=== PATIENT | female | born 1955 | race Two or more races ===

== ENCOUNTER 2021-01-18 09:40 | Inpatient (IN) | payer MEDICARE, MEDICAID ==
[2021-01-18] VITALS (13 sets, daily range): BP systolic 77–134; BP diastolic 39–96
[~2021-01-18] VITALS: Ht 154.9 cm; Wt 107.2 kg
[2021-01-18] MEDS ORDERED: NOREPINEPHRINE 8 MG/250ML KIT 250 ML IV ONE (10:11)
[2021-01-18] MEDS ORDERED: ONDANSETRON HCL 4 MG/2 ML VIAL IV ONE (10:15)
[2021-01-18] MEDS ORDERED: SODIUM CHLORIDE 0.9% 1,000 ML IV ONE (10:15)
[2021-01-18] MEDS ORDERED: IOHEXOL 350 MG/ML 100ML IJ ONE (10:24)
[2021-01-18] MEDS ORDERED: DEXTROSE 50% SYRINGE 50 ML IV ONE (10:31)
[2021-01-18] MEDS ORDERED: ETOMIDATE (2MG/ML) 20ML VIAL IV ONE ×2 (10:33→11:15)
[2021-01-18] MEDS ORDERED: ROCURONIUM 10MG/ML 10ML VIAL IV ONE ×2 (10:33→11:15)
[2021-01-18] MEDS ORDERED: MIDAZOLAM DRIP 50 mg/50mL 50 ML IV ONE (10:37)
[2021-01-18] MEDS ORDERED: NOREPINEPHRINE 8 MG/250ML KIT 250 ML IV SCH (10:45)
[2021-01-18] MEDS ORDERED: EPINEPHrine HCL 250 ML IV SCH (10:45)
[2021-01-18 10:47] LABS: Basophils # (auto) 0 10 ^3/uL (0-0.2); Basophils % (auto) 0.2 % (0.0-2.0); Eosinophils # (auto) 0 10 ^3/uL (0-0.8); Eosinophils % (auto) 0.2 % (0.0-7.0); Hematocrit 21.7 % (36.0-46.0); Lymphocytes % (auto) 18.3 % (10.0-50.0); Mean Corpuscular Hemoglobin 22.7 pg (28.0-32.0); Mean Corpuscular Hgb Conc. 30.2 g/dL (32.0-36.0); Mean Corpuscular Volume 75.3 fL (80.0-100.0); Monocytes # (auto) 0.2 10 ^3/uL (0-1.3); Monocytes % (auto) 4.4 % (0.0-12.0); Neutrophils # (auto) 4.3 10 ^3/uL (1.6-8.6); Neutrophils % (auto) 76.9 % (37.0-80.0); Nucleated Red Blood Cells % 2.4 %; Red Blood Cells 2.88 10^6/uL (4.0-5.20); Red Cell Distribution Width 19.8 % (11.8-14.3); White Blood Cell 5.5 10^3/uL (4.4-10.8)
[2021-01-18 10:52] LABS: Hemoglobin 6.5 g/dL (12.2-16.2)
[2021-01-18 10:57] LABS: Urine Bacteria FEW /hpf (None Seen); Urine Blood Negative /uL (Negative); Urine Hyaline Cast MANY /lpf (0 - 2); Urine Mucus FEW (None Seen); Urine Specific Gravity 1.016 (1.001-1.035); Urine WBC 2 /hpf (0 - 5)
[2021-01-18] MEDS ORDERED: fentaNYL Drip 2500mCg/250mlNS 250 ML IV SCH (11:00)
[2021-01-18] MEDS: MIDAZOLAM DRIP 50 mg/50mL 50 ML IV SCH ×3 (11:12→17:29)
[2021-01-18 11:16] LABS: Albumin 1.2 g/dL (3.4-5.0); Calcium 7.3 mg/dL (8.5-10.1); Potassium 4.1 mmol/L (3.5-5.1)
[2021-01-18 11:22] LABS: BUN/Creatinine Ratio 21.4; Bilirubin, Total 0.3 mg/dL (0.2-1.0); Total Protein 4.5 g/dL (6.4-8.2)
[2021-01-18] MEDS: PHENYLEPHRINE IV 250 ML IV SCH ×2 (12:04→14:06)
[2021-01-18] MEDS: VASOPRESSIN 50 UNITS in D5W 5% 247.5 ML IV SCH ×3 (12:53→18:58)
[2021-01-18 13:53] LABS: Lactic Acid w/Reflex 6.6 mmol/L (0.4-2.0)
[2021-01-18 14:44] LABS: INR 1.29 (0.9-1.15)
[2021-01-18] MEDS ORDERED: PIPERACILLIN-TAZOB 3.375GM 100 ML IV ONE (14:45)
[2021-01-18 15:09] LABS: Basophils # (auto) 0 10 ^3/uL (0-0.2); Eosinophils # (auto) 0 10 ^3/uL (0-0.8); Eosinophils % (auto) 0.2 % (0.0-7.0); Lymphocytes # (auto) 1.5 10 ^3/uL (0.4-5.4); Monocytes # (auto) 0.3 10 ^3/uL (0-1.3)
[2021-01-18 15:11] LABS: Basophils % (auto) 0.2 % (0.0-2.0); Hematocrit 34.9 % (36.0-46.0); Hemoglobin 10.6 g/dL (12.2-16.2); Lymphocytes % (auto) 20.9 % (10.0-50.0); Mean Corpuscular Hemoglobin 24.6 pg (28.0-32.0); Mean Corpuscular Hgb Conc. 30.5 g/dL (32.0-36.0); Mean Corpuscular Volume 80.6 fL (80.0-100.0); Monocytes % (auto) 4.6 % (0.0-12.0); Neutrophils # (auto) 5.2 10 ^3/uL (1.6-8.6); Neutrophils % (auto) 74.1 % (37.0-80.0); Red Blood Cells 4.33 10^6/uL (4.0-5.20); White Blood Cell 7.1 10^3/uL (4.4-10.8)
[2021-01-18] MEDS ORDERED: MORPHINE SULFATE INJECTION 2 MG/ML SYRG IV PRN ×3 (15:15→17:15)
[2021-01-18] MEDS ORDERED: NITROGLYCERIN 0.4 MG SL TAB SL PRN ×2 (15:15→17:15)
[2021-01-18 15:20] LABS: Red Cell Distribution Width 21.2 % (11.8-14.3)
[2021-01-18] MEDS: D5W 5% 1,000 ML IV SCH (15:45)
[2021-01-18] MEDS ORDERED: ONDANSETRON HCL 4 MG/2 ML VIAL IV PRN (17:15)
[2021-01-18] MEDS ORDERED: LORazepam 0.5 MG TAB PO PRN (17:15)
[2021-01-18] MEDS ORDERED: FAMOTIDINE (10MG/ML) 2ML VL IV ONE (17:15)
[2021-01-18] MEDS ORDERED: DOCUSATE SOD 100 MG CAP PO PRN (17:15)
[2021-01-18] MEDS ORDERED: MORPHINE SULFATE 4 MG/ML SYR/VIAL IV PRN (17:15)
[2021-01-18] MEDS ORDERED: ACETAMINOPHEN 325 MG TAB PO PRN (17:15)
[2021-01-18] MEDS ORDERED: VANCOMYCIN PER PHARMACY 1,000 MG IV SCH (17:15)
[2021-01-18] MEDS ORDERED: LORazepam 2MG/ML-1ML VIAL IV PRN (17:15)
[2021-01-18] MEDS ORDERED: ALUM & MAG HYDROX-SIMETH LIQ(MAALOX) 30 ML PO PRN (17:15)
[2021-01-18] MEDS ORDERED: VANCOMYCIN 1GM/250ML 250 ML IV ONE (17:45)
[2021-01-18] MEDS ORDERED: PIPERACILLIN-TAZOB 3.375GM 100 ML IV SCH (18:00)
[2021-01-18] MEDS ORDERED: fentaNYL CITRATE 5 ML ONE (19:39)
[2021-01-18] MEDS ORDERED: HYDROmorphone HCL 2 MG/ML VL ONE (19:49)
[2021-01-18] MEDS ORDERED: ceFAZolin 1GM VL ONE (20:21)
[2021-01-18 22:20] LABS: Basophils # (auto) 0 10 ^3/uL (0-0.2); Eosinophils # (auto) 0 10 ^3/uL (0-0.8); Monocytes # (auto) 0.1 10 ^3/uL (0-1.3); Monocytes % (auto) 2.2 % (0.0-12.0); White Blood Cell 4.5 10^3/uL (4.4-10.8)
[2021-01-18 22:22] LABS: Basophils % (auto) 0.2 % (0.0-2.0); Eosinophils % (auto) 0.1 % (0.0-7.0); Hemoglobin 8.6 g/dL (12.2-16.2); Lymphocytes # (auto) 1.3 10 ^3/uL (0.4-5.4); Lymphocytes % (auto) 29.5 % (10.0-50.0); Mean Corpuscular Hemoglobin 24.8 pg (28.0-32.0); Mean Corpuscular Hgb Conc. 27.9 g/dL (32.0-36.0); Mean Corpuscular Volume 88.9 fL (80.0-100.0); Neutrophils # (auto) 3.1 10 ^3/uL (1.6-8.6); Red Blood Cells 3.48 10^6/uL (4.0-5.20)
[2021-01-18 22:25] LABS: Nucleated Red Blood Cells % 12.2 %; Red Cell Distribution Width 20.4 % (11.8-14.3)
[2021-01-18 22:32] LABS: BUN/Creatinine Ratio 20.6; Calcium 6.9 mg/dL (8.5-10.1); Magnesium 2.5 mg/dL (1.6-2.6)
[2021-01-18] MEDS ORDERED: SODIUM BICARBONATE 8.4% INJ 50ML SYRINGE ONE ×2 (22:57→23:07)
[2021-01-18 22:59] LABS: Potassium 6.5 mmol/L (3.5-5.1)
[2021-01-18 23:03] LABS: INR 1.63 (0.9-1.15)
[2021-01-18 23:06] LABS: Partial Thromboplastin Time 83.4 sec (23.6-33.0)
[2021-01-18] MEDS ORDERED: SODIUM BICARBONATE 8.4 % INJ 50ML VIAL IV ONE ×2 (23:11→23:15)
[2021-01-18] MEDS ORDERED: CALCIUM GLUC 1,000mg/50ml-NS 50 ML IV ONE (23:15)
[2021-01-18] MEDS ORDERED: SODIUM BICARBONATE 50ML VIAL 100 ML in SOD CHL 0.45% 1,000 ML IV SCH (23:15)
[2021-01-18] MEDS ORDERED: SODIUM ZIRCONIUM CYCL 10 GM PAK PO ONE (23:15)
[2021-01-18] MEDS ORDERED: DEXTROSE (50%) 50ML SYRG IV ONE (23:15)
[2021-01-18] MEDS ORDERED: InsuLIN REG 1unit/0.01ml Soln (100units/ml) IV ONE (23:15)
[2021-01-18] MEDS ORDERED: ALBUTEROL SULF 2.5 MG/0.5ML(0.5%) NEB SOLN NEB ONE (23:15)
[2021-01-18] MEDS ORDERED: VASOPRESSIN 20 UNIT/ML ONE (23:22)
[2021-01-18] MEDS: PIPERACILLIN-TAZOB 2.25GM 50 ML IV SCH (23:36)
[2021-01-19] VITALS (38 sets, daily range): BP systolic 79–156; BP diastolic 29–67
[2021-01-19] MEDS ORDERED: SODIUM BICARBONATE 8.4 % INJ 50ML VIAL IV ONE ×3 (02:45→07:45)
[2021-01-19] MEDS ORDERED: SODIUM BICARBONATE 50ML VIAL 150 ML in SOD CHL 0.45% 1,000 ML IV SCH ×2 (02:45→05:15)
[2021-01-19] MEDS ORDERED: SODIUM BICARBONATE 8.4% INJ 50ML SYRINGE ONE (02:51)
[2021-01-19 03:26] LABS: Hematocrit 28.8 % (36.0-46.0); Hemoglobin 8.4 g/dL (12.2-16.2); Mean Corpuscular Hemoglobin 26.2 pg (28.0-32.0); Mean Corpuscular Hgb Conc. 29.1 g/dL (32.0-36.0); White Blood Cell 8.8 10^3/uL (4.4-10.8)
[2021-01-19 03:37] LABS: Red Cell Distribution Width 20.7 % (11.8-14.3)
[2021-01-19 03:38] LABS: Basophils % (manual) 0 (0.0-2.0); Blast Cells 0; Promyelocytes % 0; Reactive Lymphocytes 0
[2021-01-19 03:49] LABS: BUN/Creatinine Ratio 17.9; Bilirubin, Total 0.7 mg/dL (0.2-1.0); Calcium 7.1 mg/dL (8.5-10.1); Magnesium 2.8 mg/dL (1.6-2.6); Total Protein 3.4 g/dL (6.4-8.2)
[2021-01-19 03:54] LABS: Lactic Acid w/Reflex 19.5 mmol/L (0.4-2.0)
[2021-01-19 04:10] LABS: Albumin 0.8 g/dL (3.4-5.0)
[2021-01-19 04:11] LABS: Potassium 7.5 mmol/L (3.5-5.1)
[2021-01-19] MEDS: D5W 5% 1,000 ML IV SCH (04:35)
[2021-01-19 04:56] LABS: Band Neutrophils % (manual) 18; Eosinophils % (manual) 1 (0-7); Lymphocytes % (manual) 44 (10.0-50.0); Metamyelocytes % 4; Monocytes % (manual) 10 (0-12); Myelocytes % 14
[2021-01-19] MEDS ORDERED: DEXTROSE (50%) 50ML SYRG IV ONE (05:15)
[2021-01-19] MEDS ORDERED: SODIUM ZIRCONIUM CYCL 10 GM PAK PO ONE (05:15)
[2021-01-19] MEDS ORDERED: ALBUTEROL SULF 2.5 MG/0.5ML(0.5%) NEB SOLN NEB ONE (05:15)
[2021-01-19] MEDS ORDERED: CALCIUM GLUC 1,000mg/50ml-NS 50 ML IV ONE (05:15)
[2021-01-19] MEDS ORDERED: ALBUMIN 25% 100 ML IV ONE (05:15)
[2021-01-19] MEDS ORDERED: InsuLIN REG 1unit/0.01ml Soln (100units/ml) IV ONE (05:15)
[2021-01-19] MEDS: PIPERACILLIN-TAZOB 2.25GM 50 ML IV SCH (06:00)
[2021-01-19 09:49] LABS: INR 4.26 (0.9-1.15)
[2021-01-19 09:50] LABS: Partial Thromboplastin Time > 139.0 sec (23.6-33.0)
[2021-01-19] MEDS ORDERED: FAMOTIDINE (10MG/ML) 2ML VL IV SCH (22:00)
== END 2021-01-19 20:05 | DRG 853 ==
LOC: ER 09:40 → EDBD 09:40 → TELE 15:07 → ICU WEST 18:18
PROVIDERS: ADMIT Hospitalist; ATTEND Hospitalist
PROC: 0DU907Z Supplement Duodenum with Autologous Tissue Substitute, Open Approach (ICD-10-PCS; 2021-01-18)
PROC: 0DU607Z Supplement Stomach with Autologous Tissue Substitute, Open Approach (ICD-10-PCS; 2021-01-18)
PROC: 0T9B70Z Drainage of Bladder with Drainage Device, Via Natural or Artificial Opening (ICD-10-PCS; 2021-01-18)
PROC: 0BH17EZ Insertion of Endotracheal Airway into Trachea, Via Natural or Artificial Opening (ICD-10-PCS; 2021-01-18)
PROC: 5A1935Z Respiratory Ventilation, Less than 24 Consecutive Hours (ICD-10-PCS; 2021-01-18)
PROC: 30233N1 Transfusion of Nonautologous Red Blood Cells into Peripheral Vein, Percutaneous Approach (ICD-10-PCS; 2021-01-18)
PROC: 06HY33Z Insertion of Infusion Device into Lower Vein, Percutaneous Approach (ICD-10-PCS; 2021-01-18)
PROC: 0D9670Z Drainage of Stomach with Drainage Device, Via Natural or Artificial Opening (ICD-10-PCS; 2021-01-18)
PROC: 0W9G0ZZ Drainage of Peritoneal Cavity, Open Approach (ICD-10-PCS; principal; 2021-01-18 19:25)
DX: A41.9 Sepsis, unspecified organism (principal); K63.1 Perforation of intestine (nontraumatic); I26.99 Other pulmonary embolism without acute cor pulmonale; R65.21 Severe sepsis with septic shock; K65.1 Peritoneal abscess; E43 Unspecified severe protein-calorie malnutrition; I26.93 Single subsegmental thrombotic pulmonary embolism without acute cor pulmonale; J96.01 Acute respiratory failure with hypoxia; E87.2 Acidosis; N17.9 Acute kidney failure, unspecified; Z68.41 Body mass index [BMI] 40.0-44.9, adult; D64.9 Anemia, unspecified; E66.01 Morbid (severe) obesity due to excess calories; E78.5 Hyperlipidemia, unspecified; I12.9 Hypertensive chronic kidney disease with stage 1 through stage 4 chronic kidney disease, or unspecified chronic kidney disease; N18.32 Chronic kidney disease, stage 3b
CPT/HCPCS: 31500; 36415; 36556; 36600; 70450; 71045; 71260; 72125; 74177; 80048; 80053; 80202; 81001; 82140; 82805; 82962; 83605; 83690; 83735; 83880; 84100; 84484; 85007; 85025; 85027; 85610; 85730; 86850; 86900; 86901; 86920; 87040; 87070; 87081; 87086; 87205; 87426; 93005; 94002; 94003; 96365; 99291; G0378; J0171; J0690; J1815; J2250; J2543; J3490; J7060; P9047